=== PATIENT | male | born 1995 | race Caucasian/White ===

== ENCOUNTER 2020-10-17 03:37 | Observation (INO) | payer OTHER, SELFPAY ==
[~2020-10-17] VITALS: Ht 182.9 cm; Wt 73.9 kg
[2020-10-17 03:41] VITALS: BP 127/66
[2020-10-17 05:19] LABS: BASOPHILS % (AUTO) 0.4 % (0.0-2.0); EOSINOPHILS # (AUTO) 0.1 K/uL (0-0.4); EOSINOPHILS % (AUTO) 1.5 % (0.0-4.0); HEMATOCRIT 45.7 % (36-52); HEMOGLOBIN 15.7 g/dL (12.0-18.0); LYMPHOCYTES # (AUTO) 1.7 K/uL (2.0-11.5); LYMPHOCYTES % (AUTO) 20.6 % (20.5-51.1); MEAN CORPUSCULAR HEMOGLOBIN 31 pg (27-31); MEAN CORPUSCULAR HGB CONC 34 g/dL (33-37); MEAN CORPUSCULAR VOLUME 90.1 fL (80-94); NEUTROPHILS # (AUTO) 5.3 K/uL (1.8-7.7); NEUTROPHILS % (AUTO) 65.5 % (42.2-75.2); PLATELET COUNT (AUTO) 244 K/uL (140-450); RED BLOOD CELL COUNT(AUTO) 5.07 MIL/uL (4.20-6.10); RED CELL DISTRIBUTION WIDTH 12.6 % (11.6-13.7); WHITE BLOOD COUNT (AUTO) 8.1 K/uL (4.8-10.8)
[2020-10-17 06:08] LABS: ALBUMIN 4.3 g/dL (3.4-5.0); ANION GAP 10.3 (8-16); CARBON DIOXIDE 30.5 mmol/L (21-32); CREATININE 1.1 mg/dL (0.6-1.3); POTASSIUM 3.8 mmol/L (3.5-5.1); TOTAL BILIRUBIN 0.6 mg/dL (0.0-1.0)
[2020-10-17 06:12] LABS: CHOL/HDL RATIO 5.5 (1-4.5); FREE T4 (FREE THYROXINE) 1.07 ng/dL (0.76-1.46); THYROID STIMULATING HORMONE 4.85 uIU/mL (0.34-3.74)
[2020-10-17 06:28] LABS: PROTHROMBIN TIME 9.3 secs (10.8-13.4)
[2020-10-17] MEDS ORDERED: ACETAMINOPHEN 325 MG TAB PO PRN (08:00)
[2020-10-17] MEDS ORDERED: MAGNESIUM OXIDE 400 MG TAB PO PRN (08:00)
[2020-10-17] MEDS ORDERED: ONDANSETRON 4 MG/2 ML VIAL IVP PRN (08:00)
[2020-10-17] MEDS ORDERED: MAG SULF 2000 MG/WATER PREMIX 50 ML IV PRN (08:00)
[2020-10-17] MEDS ORDERED: KCL 20 MEQ/WATER INJ PREMIX 200 ML IV PRN (08:00)
[2020-10-17] MEDS ORDERED: LORazepam 1 MG TAB PO PRN (08:00)
[2020-10-17] MEDS ORDERED: POTASSIUM CHLORIDE 10 MEQ TABER PO PRN (08:00)
[2020-10-17] MEDS ORDERED: HYDROcodone/APAP 5/325 MG 1 TAB TAB PO PRN (08:00)
[2020-10-17 08:35] VITALS: BP 118/73
[2020-10-17] MEDS ORDERED: DOCUSATE SODIUM 100 MG GELCAP PO SCH (09:00)
[2020-10-17] MEDS: LEVOTHYROXINE 0.025 MG TAB PO SCH ×2 (09:34→09:40)
[2020-10-17] MEDS ORDERED: PHENYLEPHRINE 0.25% 15 ML BTL NS PRN (11:00)
[2020-10-17] MEDS ORDERED: PHENYLEPHRINE 0.5% 15 ML BTL NS PRN (11:10)
[2020-10-17 16:00] VITALS: BP 109/57
[2020-10-17] MEDS ORDERED: PROP20TA28 PO (17:10)
[2020-10-18] MEDS ORDERED: LEVOTHYROXINE 0.025 MG TAB PO SCH (06:30)
[2020-10-19 21:46] LABS: THYROID PEROXIDASE (TPO) AB 227 IU/mL (0 - 34)
== END 2020-10-17 18:05 | disposition home or self-care (01) ==
LOC: MED 03:37 → MTU 08:04
PROVIDERS: ADMIT Hospitalist; ATTEND Hospitalist
DX: R00.2 Palpitations (principal); Z20.822 Contact with and (suspected) exposure to COVID-19; R06.02 Shortness of breath; E06.3 Autoimmune thyroiditis; E05.90 Thyrotoxicosis, unspecified without thyrotoxic crisis or storm; J45.909 Unspecified asthma, uncomplicated; Z79.899 Other long term (current) drug therapy; Z91.048 Other nonmedicinal substance allergy status
CPT/HCPCS: 36415; 71045; 80053; 80061; 83735; 83880; 84439; 84443; 84484; 85025; 85610; 85730; 86376; 86800; 87081; 87426; 93005; 99285; G0378

== ENCOUNTER 2021-11-09 02:22 | Emergency (ER) | payer OTHER ==
[~2021-11-09] VITALS: Ht 182.9 cm; Wt 78.6 kg
[~2021-11-09 02:22] MED LIST: PROP20TA28 PO
[2021-11-09 02:34] VITALS: BP 121/78
--- NOTE | 2021-11-09 02:38 | NUR ---
EKG IN TRAIGE.
[2021-11-09] MEDS ORDERED: diphenhydrAMINE 50 MG CAP PO ONE (02:50)
[2021-11-09 03:11] VITALS: BP 121/78
--- NOTE | 2021-11-09 03:11 | NUR ---
Patient discharged with v/s stable. Written and verbal after care instructions given and explained. Patient verbalized understanding. Ambulatory with steady gait. All questions addressed prior to discharge. Advised to follow up with PMD.
== END 2021-11-09 03:11 | disposition home or self-care (01) ==
LOC: MED 02:22
DX: R00.2 Palpitations (principal); R07.9 Chest pain, unspecified; R06.02 Shortness of breath; J45.909 Unspecified asthma, uncomplicated; Z79.899 Other long term (current) drug therapy; Z88.8 Allergy status to other drugs, medicaments and biological substances
CPT/HCPCS: 93005; 99283; Q0163

== ENCOUNTER 2023-07-06 00:57 | Emergency (ER) | payer OTHER ==
[~2023-07-06] VITALS: Ht 185.4 cm; Wt 83.9 kg
[2023-07-06 01:05] VITALS: BP 125/82; PULSE 74; RESP 16; TEMP 97; O2SAT 100
[2023-07-06 02:31] VITALS: BP 122/79; PULSE 68; RESP 14
[2023-07-06 02:33] VITALS: O2SAT 98
[2023-07-06 02:36] LABS: BASOPHILS % (AUTO) 0.5 % (0.0-2.0); EOSINOPHILS # (AUTO) 0.1 K/uL (0-0.4); EOSINOPHILS % (AUTO) 1.2 % (0.0-4.0); HEMATOCRIT 45.7 % (36-52); HEMOGLOBIN 15.5 g/dL (12.0-18.0); LYMPHOCYTES # (AUTO) 1.8 K/uL (2.0-11.5); LYMPHOCYTES % (AUTO) 21.5 % (20.5-51.1); MEAN CORPUSCULAR HEMOGLOBIN 30 pg (27-31); MEAN CORPUSCULAR HGB CONC 34 g/dL (33-37); MEAN CORPUSCULAR VOLUME 88.3 fL (80-94); MONOCYTES # (AUTO) 0.8 K/uL (0.8-1.0); MONOCYTES % (AUTO) 9.8 % (1.7-9.3); NEUTROPHILS # (AUTO) 5.5 K/uL (1.8-7.7); PLATELET COUNT (AUTO) 239 K/uL (140-450); RED BLOOD CELL COUNT(AUTO) 5.17 MIL/uL (4.20-6.10); RED CELL DISTRIBUTION WIDTH 13.1 % (11.6-13.7); WHITE BLOOD COUNT (AUTO) 8.2 K/uL (4.8-10.8)
[2023-07-06 03:22] LABS: ANION GAP 12.1 (8-16); CALCIUM 9.2 mg/dL (8.5-10.1); CARBON DIOXIDE 29.9 mmol/L (21-32); CREATININE 1.3 mg/dL (0.6-1.3)
[2023-07-06 03:38] LABS: ALANINE AMINOTRANSFERASE 14 U/L (12-78); ALBUMIN 4.1 g/dL (3.4-5.0); ALKALINE PHOSPHATASE 71 U/L (50-136); ASPARTATE AMINOTRANSFERASE 10 U/L (15-37); BILIRUBIN,DIRECT 0.1 mg/dL (0.0-0.3); THYROID STIMULATING HORMONE 10.29 uIU/mL (0.34-3.74); TOTAL BILIRUBIN 0.5 mg/dL (0.0-1.0); TOTAL PROTEIN, SERUM 9.1 g/dL (6.4-8.2)
[2023-07-06] MEDS ORDERED: LEVO0.0511 PO (03:56)
== END 2023-07-06 04:00 | disposition home or self-care (01) ==
LOC: MED 00:57
DX: R00.2 Palpitations (principal); E03.9 Hypothyroidism, unspecified; J45.909 Unspecified asthma, uncomplicated; E06.3 Autoimmune thyroiditis; Z79.899 Other long term (current) drug therapy; Z88.8 Allergy status to other drugs, medicaments and biological substances
CPT/HCPCS: 36415; 80048; 80076; 83880; 84443; 84484; 85025; 85379; 93005; 99284

== ENCOUNTER 2023-07-10 22:32 | Emergency (ER) | payer OTHER ==
[~2023-07-10] VITALS: Ht 185.4 cm; Wt 81.6 kg
[~2023-07-10 22:32] MED LIST changes: +LEVO0.0511 PO
[2023-07-10 23:14] VITALS: BP 127/71; PULSE 88; RESP 19; TEMP 98.3; O2SAT 99
[2023-07-11 01:04] LABS: BASOPHILS # (AUTO) 0.1 K/uL (0.00-0.22); BASOPHILS % (AUTO) 0.7 % (0.0-2.0); EOSINOPHILS # (AUTO) 0.1 K/uL (0-0.4); EOSINOPHILS % (AUTO) 0.8 % (0.0-4.0); HEMATOCRIT 42.6 % (36-52); HEMOGLOBIN 14.8 g/dL (12.0-18.0); LYMPHOCYTES # (AUTO) 1.8 K/uL (2.0-11.5); LYMPHOCYTES % (AUTO) 18.4 % (20.5-51.1); MEAN CORPUSCULAR HEMOGLOBIN 30 pg (27-31); MEAN CORPUSCULAR HGB CONC 35 g/dL (33-37); MEAN CORPUSCULAR VOLUME 87.4 fL (80-94); MONOCYTES # (AUTO) 0.7 K/uL (0.8-1.0); MONOCYTES % (AUTO) 7.4 % (1.7-9.3); NEUTROPHILS # (AUTO) 7.2 K/uL (1.8-7.7); NEUTROPHILS % (AUTO) 72.7 % (42.2-75.2); PLATELET COUNT (AUTO) 230 K/uL (140-450); RED BLOOD CELL COUNT(AUTO) 4.87 MIL/uL (4.20-6.10); RED CELL DISTRIBUTION WIDTH 12.8 % (11.6-13.7); WHITE BLOOD COUNT (AUTO) 9.9 K/uL (4.8-10.8)
[2023-07-11 01:11] LABS: ANION GAP 9.2 (8-16); CALCIUM 9.3 mg/dL (8.5-10.1); CARBON DIOXIDE 31.4 mmol/L (21-32); POTASSIUM 3.6 mmol/L (3.5-5.1)
[2023-07-11 01:28] LABS: FREE T4 (FREE THYROXINE) 1.08 ng/dL (0.76-1.46); THYROID STIMULATING HORMONE 4.41 uIU/mL (0.34-3.74)
[2023-07-11] MEDS ORDERED: ATA25 PO (03:06)
[2023-07-11 03:38] VITALS: BP 110/64; PULSE 73; RESP 12; O2SAT 98
== END 2023-07-11 03:38 | disposition home or self-care (01) ==
LOC: MED 22:32
DX: R00.2 Palpitations (principal); R07.89 Other chest pain; J45.909 Unspecified asthma, uncomplicated; Z79.899 Other long term (current) drug therapy; Z91.018 Allergy to other foods
CPT/HCPCS: 36415; 71045; 80048; 84439; 84443; 84484; 85025; 93005; 99285; Q0092

== ENCOUNTER 2024-03-10 19:34 | Emergency (ER) | payer OTHER ==
[~2024-03-10] VITALS: Ht 182.9 cm; Wt 79.4 kg
[~2024-03-10 19:34] MED LIST changes: +ATA25 PO
[2024-03-10 19:46] VITALS: BP 109/70; PULSE 109; RESP 18; TEMP 98.4; O2SAT 98
[2024-03-10 20:42] VITALS: O2SAT 98
[2024-03-10 20:51] LABS: BASOPHILS # (AUTO) 0.1 K/uL (0.00-0.22); BASOPHILS % (AUTO) 0.7 % (0.0-2.0); EOSINOPHILS % (AUTO) 0.4 % (0.0-4.0); HEMATOCRIT 45.9 % (36-52); HEMOGLOBIN 15.5 g/dL (12.0-18.0); LYMPHOCYTES # (AUTO) 1.5 K/uL (2.0-11.5); LYMPHOCYTES % (AUTO) 15.9 % (20.5-51.1); MEAN CORPUSCULAR HEMOGLOBIN 30 pg (27-31); MEAN CORPUSCULAR HGB CONC 34 g/dL (33-37); MEAN CORPUSCULAR VOLUME 88.8 fL (80-94); MONOCYTES # (AUTO) 0.7 K/uL (0.8-1.0); MONOCYTES % (AUTO) 7.9 % (1.7-9.3); NEUTROPHILS % (AUTO) 75.1 % (42.2-75.2); PLATELET COUNT (AUTO) 229 K/uL (140-450); RED BLOOD CELL COUNT(AUTO) 5.17 MIL/uL (4.20-6.10); RED CELL DISTRIBUTION WIDTH 12.6 % (11.6-13.7); WHITE BLOOD COUNT (AUTO) 9.3 K/uL (4.8-10.8)
[2024-03-10 21:00] LABS: ANION GAP 12.3 (8-16); CALCIUM 8.6 mg/dL (8.5-10.1); CARBON DIOXIDE 29.8 mmol/L (21-32); CREATININE 1.1 mg/dL (0.6-1.3); POTASSIUM 3.1 mmol/L (3.5-5.1)
[2024-03-10 22:07] VITALS: BP 109/70; PULSE 109; RESP 18; TEMP 98.4; O2SAT 98
== END 2024-03-10 22:08 | disposition home or self-care (01) ==
LOC: MED 19:34
DX: R06.02 Shortness of breath (principal); R07.81 Pleurodynia; R07.9 Chest pain, unspecified; R50.9 Fever, unspecified; J45.909 Unspecified asthma, uncomplicated; K21.9 Gastro-esophageal reflux disease without esophagitis; Z86.39 Personal history of other endocrine, nutritional and metabolic disease; Z79.899 Other long term (current) drug therapy; Z91.018 Allergy to other foods
CPT/HCPCS: 36415; 71046; 80048; 83880; 84484; 85025; 85379; 85651; 86140; 93005; 99285